=== PATIENT | male | born 1980 ===

== ENCOUNTER 2023-10-28 14:33 | Outpatient (CLI) | payer OTHER, SELFPAY | END 2023-10-28 14:34 | disposition home or self-care (01) | PROVIDERS: PCP Family Medicine; Visit Provider Family Medicine | DX: R10.9 Unspecified abdominal pain (principal); Z13.0 Encounter for screening for diseases of the blood and blood-forming organs and certain disorders involving the immune mechanism; Z13.6 Encounter for screening for cardiovascular disorders | CPT/HCPCS: 80048; 80061 ==